=== PATIENT | female | born 1965 | race Caucasian/White ===

== ENCOUNTER 2016-09-30 02:06 | Emergency (ER) | payer SELFPAY ==
[~2016-09-30] VITALS: Ht 160 cm; Wt 69.5 kg
[~2016-09-30 02:06] MED LIST: BROM2.5T13 PO; IBUP-1542 PO; IBUP800T25 PO; LACT1CAP57 PO; MAG355OR14 PO
[2016-09-30 02:10] VITALS: Ht 160 cm; Wt 69.5 kg
== END 2016-09-30 04:51 | disposition left against medical advice (07) ==
LOC: FTE 02:06
DX: Z53.21 Procedure and treatment not carried out due to patient leaving prior to being seen by health care provider (principal)

== ENCOUNTER 2017-07-16 10:56 | Emergency (ER) | END 2017-07-16 16:28 | disposition left against medical advice (07) ==

== ENCOUNTER 2018-12-17 21:15 | Emergency (ER) | payer OTHER ==
[~2018-12-17] VITALS: Ht 154.9 cm; Wt 68.6 kg
[~2018-12-17 21:15] MED LIST changes: -BROM2.5T13 PO; +BROM2.5T16 PO; +IBUP-1545 PO; -IBUP800T25 PO
[2018-12-17 21:52] VITALS: BP 162/74; PULSE 65; RESP 20; Ht 154.9 cm; Wt 68.6 kg
[2018-12-18] MEDS ORDERED: FLUC150T PO (00:57)
[2018-12-18] MEDS ORDERED: CLOT30CR24 TOP (00:57)
[2018-12-18] MEDS ORDERED: FLUCONAZOLE 150 MG TAB PO ONE (01:00)
[2018-12-18] MEDS ORDERED: PROM6.2515 PO (01:34)
--- NOTE | 2018-12-18 08:08 | ERD ---
ER Documentation Chief Complaint Chief Complaint VAG ITCH X 3 DAYS HPI This is a 52-year-old otherwise healthy female presents to the ED complaining of vaginal itching and discharge x3 days. Patient denies any urinary symptoms. Denies any back pain. Denies any fevers or chills. She is sexually active but denies any known exposures to STDs. Patient states today's symptoms are similar to her previous fungal infections. She is requesting medication for this. ROS All systems reviewed and are negative except as per history of present illness. Medications Home Meds Active Scripts Promethazine Hcl* (Promethazine Hcl* Syrup) 6.25 Mg/5 Ml Syrup, 6.25 MG PO Q6H PRN for COUGH for 7 Days, ML Prov:AIDAIGRRAVIANFANNY N PA-C 12/18/18 Fluconazole* (Diflucan*) 150 Mg Tablet, 150 MG PO ONCE, #1 TAB Prov:AIDAIGRIKIANJANEPYUR N PA-C 12/18/18 Clotrimazole* (Clotrimazole* AF) 1% - 30 Gm Cream.gm., 1 APPLIC TOP DAILY for 7 Days, TUB Prov:DISHIGRIKIANJANEPYUR N PA-C 12/18/18 Ibuprofen* (Ibuprofen*) 600 Mg Tablet, 600 MG PO Q8 for PAIN, #30 TAB Prov:HENRY JAY MD 05/08/16 Mag Hydrox/Al Hydrox/Simeth (Maalox Advanced Suspension) 355 Ml Oral.susp, 2 TSP PO TID, #24 OZ Prov:HENRY JAY MD 05/08/16 Lactobacillus Rhamnosus* (Culturelle*) 1 Each Cap.sprink, 1 CAP PO DAILY for 30 Days, CAP Prov:HENRY JAY MD 05/08/16 Reported Medications Bromocriptine Mesylate* (Parlodel*) 2.5 Mg Tablet, 2.5 MG PO DAILY, TAB 05/08/16 Ibuprofen* (Ibuprofen*) 800 Mg Tab, 800 MG PO TID, TAB 05/08/16 Allergies Allergies: Coded Allergies: Penicillins (Verified Allergy, Mild, RASH, 06/15/12) PMhx/Soc History of Surgery: Yes (HERNIA REPAIR 7YRS) Anesthesia Reaction: No Hx Neurological Disorder: No Hx Respiratory Disorders: No Hx Cardiac Disorders: No Hx Psychiatric Problems: No Hx Miscellaneous Medical Probl: Yes (BRAIN TUMOR) Hx Alcohol Use: No Hx Substance Use: No Hx Tobacco Use: No Physical Exam Vitals Vital Signs Date Temp Pulse Resp B/P (MAP) Pulse Ox O2 O2 Flow FiO2 Time Delivery Rate 12/17/18 97.4 65 20 162/74 97 21:52 (103) Physical Exam Const: No acute distress Head: Atraumatic Eyes: Normal Conjunctiva ENT: Normal External Ears, Nose and Mouth. Neck: Full range of motion. No meningismus. Abd: Soft, non tender, non distended. Normal bowel sounds Neur: Awake and alert Psych: Normal Mood and Affect Results 24 hrs Laboratory Tests Test 12/18/18 01:05 Bedside Glucose 80 mg/dL Current Medications Medications Dose Sig/Akhil Start Time Status Last (Trade) Ordered Route PRN Stop Time Admin Dose Reason Admin Fluconazole 150 mg ONCE ONCE 12/18/18 DC 12/18/18 (Diflucan) PO 01:00 01:11 12/18/18 01:01 Procedures/MDM LABS & DIAGNOSTIC IMAGING: Accucheck: 80 MEDICAL DECISION MAKING: This is a 52-year-old female who presents with vaginal itching and discharge. Clinical picture is most consistent with vulvovaginal candidiasis. Patient was given her first dose of fluconazole here. She was discharged home with a prescription for same along with topical antifungals as well. Her blood sugar here was 80, I have low suspicion for diabetes. Clinical picture not consistent with pyelonephritis, PUD or any other emergent process. Patient discharged home with PCP follow-up and strict return precautions. PRESCRIPTIONS: Fluconazole, clotrimazole SPECIALIST FOLLOW UP RECOMMENDED: None Patient has been advised to follow up with primary care in 1-2 days. Departure Diagnosis: Primary Impression: Vulvovaginal candidiasis Condition: Stable Patient Instructions: Vaginal Infection: Yeast (Candidiasis), Ketoconazole Oral tablet Referrals: [facility] [place] [id number]ABUSLEME [facility] [address] [place] [address] [address] [place] [address] DR FOX, HESHMAT [address] [address] [facility], [address], [place] [address] DR SMITH, [facility] [address] [facility], [place] [address] [facility] [address] [place] [address] [facility], [facility] [id number] - DR GARCIA, CLARISSA [address], [facility] [address] DR LAU, JONAH [address] [facility]. [address], [place] [address] DR LYLE, FARID [address] [place], [place] [id number] Additional Instructions: Paciente aconseja volver a Departamento de urgencias inmediatamente para sntomas nuevos o que empeoran . Paciente aconseja posteriores con el PCP en 1-2 malagon. Si el paciente no tiene ninguna de atencin primaria pueden seguir con [facility] [address] [place] [address] [facility] + [address] [address] FANNY ARELLANO PA-C Dec 18, 2018 08:08
== END 2018-12-18 01:37 | disposition home or self-care (01) ==
LOC: FTE 21:15
DX: B37.3 Candidiasis of vulva and vagina (principal)
CPT/HCPCS: 82962; Z7502; Z7610; 99283